=== PATIENT | female | born 1995 | race Caucasian/White ===

== ENCOUNTER 2019-11-09 09:49 | Outpatient (CLI) | payer BC, SELFPAY ==
--- NOTE | ~2019-11-09 | MR_ITS ---
EXAMINATION: MR brain IAC wo/w con EXAM DATE: 11/09/2019 11:31 INDICATION: Epilepsy. TECHNIQUE: Multi-sequential, multiplanar MR images of the brain, brainstem, internal auditory canals were obtained without contrast. Whole brain sagittal T1, axial diffusion, gradient echo (T2*), T1, T 2, FLAIR sequences obtained. High resolution coronal 3-D FIESTA, coronal T1 FSE, axial T1 FSPGR of t he internal auditory canals. Patient was then injected with 12 cc Multihance contrast intravenously. Postcontrast axial and coronal T1 weighted whole brain, axial and coronal high resolution T1 IAC seq uences obtained. There is no prior study for comparison. FINDINGS: No evidence of mastoid or middle ear opacification. The 7th/8th cranial nerve complexes a re symmetric, normal in course and caliber. No cerebellopontine angle masses. Posterior fossa unrem arkable. There are no areas of restricted diffusion to suggest acute infarction. There is no acute hemorrhage seen on the T2*, a hemosiderin sensitive sequence. No intraparenchymal brain mass. The ventricles a re normal in size. There are no extra-axial collections. Flow voids are seen in the cerebral arteri es on the T2-weighted sequences consistent with their expected patency. The orbits are unremarkable. Soft tissue is unremarkable. Incidental note made of left temporal lobe developmental venous anom rosi, not considered clinically significant finding. There are no other areas of abnormal enhancement. IMPRESSION: 1. Incidental left temporal DVA. 2. Otherwise unremarkable exam. Reviewed, dictated and finalized at location A.
[2019-11-09 10:37] LABS: Estimated Glomerular Filt Rate > 60
== END 2019-11-09 09:50 | disposition home or self-care (01) ==
PROVIDERS: Visit Provider Otolaryngology
DX: G47.419 Narcolepsy without cataplexy (principal)
CPT/HCPCS: 70553; A9577